=== PATIENT | female | born 2000 | race Asian ===

== ENCOUNTER 2023-06-20 10:42 | Emergency (ER) | payer OTHER, SELFPAY ==
[2023-06-20] VITALS (10 sets, daily range): BP systolic 107–130; BP diastolic 67–87; PULSE 111–140; RESP 20; TEMP 37.7–39.3; O2SAT 96–98; BMI 26.5
--- NOTE | 2023-06-20 10:55 | ED_ITS ---
HPI - Fever General Time Seen by Provider: 10:55 Date Seen: 06/20/23 Chief Complaint: Fever Stated Complaint: 104.1 fever Time Seen by Provider: 06/20/23 10:53 Source: patient and RN notes reviewed Mode of arrival: ambulatory Limitations: no limitations History of Present Illness HPI Narrative: This 23-year-old female whom is a [employer] student is coming in with fever and cough. She started with a sore throat on Wednesday, nasal congestion has started today. She has had a dry cough, sometimes she will get some sputum production. She does feel short of breath with it at times. She has been taking Tylenol and ibuprofen and is still running fevers despite which she states is maximal use of these medicines. She last took a 1000 mg of Tylenol and 200 mg of ibuprofen around 9:00 a.m. this morning. She denies any history of asthma, no chance for . 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 She has had a history of pneumonia per report. Denies any nausea vomiting or diarrhea. MD elicited complaint: fever Related Data Home Medications Medication Instructions Recorded Confirmed albuterol sulfate 90 mcg/actuation g inhalation 01/26/22 01/26/22 aerosol inhaler Previous Rx's Medication Instructions Recorded fluticasone propionate 110 1 puff inhalation BID #12 grams 01/26/22 mcg/actuation HFA aerosol inhaler (Flovent HFA) prednisone 20 mg tablet 20 mg PO BID #10 tabs 01/26/22 Allergies Allergy/AdvReac Type Severity Reaction Status Date / Time No Known Drug Allergies Allergy Verified 01/26/22 17:44 Review of Systems Status of ROS Reports: 6 or more systems reviewed and unremarkable except as noted in History and below [facility] Medical History Wheeze ?R06.2 - Wheezing (ICD-10) Social History Smoking Status: Never smoker How often do you have a drink containing alcohol: never How often do you have six or more drinks on one occasion: Never AUDIT-C Alcohol total score: 0 Non-prescribed substance use: denies use Exam Const Vital Signs, click to edit/add: Vital Signs - 24 hr 06/20/23 10:46 06/20/23 11:05 06/20/23 11:05 Temperature 102.7 F H 102.7 F H Pulse Rate Pulse Rate [Pulse Oximeter] 140 H 140 H Respiratory Rate 20 20 Blood Pressure Blood Pressure [Right Upper Arm] 130/87 Pulse Oximetry 98 98 98 Oxygen Delivery Method Room Air Room Air 06/20/23 11:13 06/20/23 11:20 06/20/23 11:30 Temperature 102.7 F H Pulse Rate 120 H 111 H Pulse Rate [Pulse Oximeter] Respiratory Rate Blood Pressure Blood Pressure [Right Upper Arm] Pulse Oximetry 97 96 Oxygen Delivery Method 06/20/23 11:32 06/20/23 11:45 Temperature Pulse Rate 113 H 113 H Pulse Rate [Pulse Oximeter] Respiratory Rate Blood Pressure 107/67 Blood Pressure [Right Upper Arm] Pulse Oximetry 96 96 Oxygen Delivery Method This 23-year-old female is alert, interactive, no apparent distress. Cheeks are flushed but no facial rash, sclera clear, conjugate gaze. Left canal blocked by cerumen right TM is normal, no evidence of infection. Oropharynx with normal mucosa, no exudates or erythema, no tonsillar enlargement. Neck is supple, no adenopathy or masses noted. Lungs are clear with good air entry, no wheezing or crackles but deep breathing does induce some dry coughing. Her speech is normal, no hoarseness. CV regular but fast, no murmur. Skin visualized without rash. Documenting provider has reviewed patient's vital signs: yes Course Course ED Course: Will give this patient a L of IV fluids to help with fever control and symptom relief. Will also dose her with 400 mg oral ibuprofen. We have discussed alternating Tylenol and ibuprofen. I will get a portable chest x-ray, nursing staff did collect the triple swab on arrival. We will get some basic labs with a CRP, basic metabolic panel, lactate and CBC. This likely represents a viral upper respiratory infection such is influenza. Need to consider bacterial pneumonia as well. Will have her on pulse oximetry here to ensure that her pulse oximetry is stable and she is not hypoxic, see if the fluids and ibuprofen help bring her pulse down. Reevaluation(s) Time of Reevaluation #1: 12:00 Reevaluation #1: Reviewed with patient she has influenza A. Review negative chest x-ray in her lab work. She is much less flushed, temperature is now 99.9 orally. We did discuss Tamiflu and she certainly is out of the 48 hour window. She awoke with symptoms Clyde morning. Thus, would not advocate Tamiflu for her, she is certainly out of the guidelines for taking this. Vital Signs Vital signs: Initial Vital Signs Temperature 102.7 F H 06/20/23 10:46 Temperature Source Oral 06/20/23 10:46 Pulse Rate 140 H 06/20/23 10:46 Respiratory Rate 20 06/20/23 10:46 Blood Pressure 130/87 06/20/23 10:46 Blood Pressure Mean 101 06/20/23 10:46 Blood Pressure Position Sitting 06/20/23 10:46 Pulse Oximetry 98 06/20/23 10:46 Oxygen Delivery Method Room Air 06/20/23 10:46 Vital Signs Temperature 102.7 F H 06/20/23 10:46 Pulse Rate 140 H 06/20/23 10:46 Respiratory Rate 20 06/20/23 10:46 Blood Pressure 130/87 06/20/23 10:46 Pulse Oximetry 98 06/20/23 10:46 Oxygen Delivery Method Room Air 06/20/23 10:46 Temperature 102.7 F H 06/20/23 11:13 Pulse Rate 113 H 06/20/23 11:45 Respiratory Rate 20 06/20/23 11:05 Blood Pressure 107/67 06/20/23 11:32 Pulse Oximetry 96 06/20/23 11:45 Oxygen Delivery Method Room Air 06/20/23 11:05 Medications Administered Medications: Generic Name Dose Route Start Last Admin Trade Name Freq PRN Reason Stop Dose Admin Sodium Chloride 1,000 mls @ 1,000 mls/hr 06/20/23 11:07 06/20/23 11:13 0.9 % Sodium Chloride 1000 Ml IV 06/20/23 12:06 1,000 mls/hr .Q1H LORETA Administration Discontinued Medications Generic Name Dose Route Start Last Admin Trade Name Freq PRN Reason Stop Dose Admin Ibuprofen 400 mg 06/20/23 11:10 06/20/23 11:13 Ibuprofen 200 Mg Tablet PO 06/20/23 11:11 400 mg ONCE ONE Administration MDM - Fever Lab Data Attestation: I reviewed the patient's lab results. Labs: Lab Results 06/20/23 06/20/23 Range/Units 11:00 Unknown WBC 10.36 (4.50-11.00) K/uL RBC 4.69 (4.00-5.20) m/uL Hgb 14.3 (12.0-16.0) gm/dL Hct 42.4 (33.0-51.0) % MCV 90 (80-100) fL MCH 31 (26-34) pg MCHC 34 (32-36) gm/dL RDW Coeff of Marleny 12.0 (11.5-15.5) % Plt Count 239 (140-440) K/uL Neut % (Auto) 76.1 H (42.0-72.0) % Lymph % (Auto) 13.3 L (20-44) % Scott % (Auto) 9.8 (0.0-11.0) % Eos % (Auto) 0.3 (0.0-7.0) % Baso % (Auto) 0.3 (0.0-3.0) % Neut # (Auto) 7.90 H (1.7-7.0) K/uL Lymph # (Auto) 1.40 (0.90-2.90) K/uL Scott # (Auto) 1.00 H (0.00-0.90) K/UL Eos # (Auto) 0.03 (0.00-0.50) K/uL Baso # (Auto) 0.03 (0.00-0.30) K/uL Abs Immat Gran (auto) 0.02 (0.00-0.30) K/uL Imm/Tot Granulo (auto) 0.2 % Sodium 136 (135-149) mmol/L Potassium 3.8 (3.6-5.1) mmol/L Chloride 102 (96-114) mmol/L Carbon Dioxide 20 (20-32) mmol/L Anion Gap 14 (7-15) mEq/L BUN 8 (5-24) mg/dL Creatinine 0.5 (0.5-1.5) mg/dL Estimated Creat Clear 140.77 Estimated GFR 137 ml/min Glucose 114 (60-115) mg/dL Lactate 2.0 H (0.5-1.9) mmol/L Calcium 9.9 (8.4-10.6) mg/dL C-Reactive Protein 3.6 H (0.5-1.0) mg/dL SARS-CoV-2 (PCR) Negative SARS-CoV-2 (Negative) Influenza Type A (PCR) POSITIVE PCR FLU A A (Negative) Influenza Type B (PCR) Negative PCR FLU B (Negative) RSV (PCR) Negative PCR RSV (Negative) Group A Strep DNA NOT DETECTED (Not Detectd) Imaging Data Chest x-ray: Attestation: I have reviewed the pertinent imaging results. My impression: I do not appreciate any acute pathology on my preliminary review. Radiologist's impression: Patient: ANNITA HARRIS Facility:?[facility] Patient ID:?[id number] Site Patient ID:?[id number]. Site :?[id number] Study:?XRay Chest portable-06/20/2023 11:20:16 AM Ordering Physician:?Shaquille Cole Final Report: Indication: Cough, fever Technique: AP portable chest one view Comparison: 01/26/2022 Findings: Lungs clear. No focal or diffuse opacities. No effusion. No pneumothorax. Normal cardiomediastinal silhouette. Osseous structures are normal. Impression: Lungs clear. No acute findings. Dictated by Shanika Nagy MD @ 06/20/2023 11:34:37 AM (Electronic Signature) Discharge Plan Discharge Clinical Impression: Influenza A Patient Disposition: Home, Self-Care Condition: Stable Instructions: Influenza (ED) Additional Instructions: It is important to push fluids, need to stay hydrated. Tylenol 1000 mg 3 times a day baseline for fever control. Can supplement with ibuprofen, 600 mg orally every 6 hours for fever, recommend taking ibuprofen with food. You are likely going to be sick for 7-10 days. You need to quarantine until you are fever free for 24 hours off all of Tylenol and ibuprofen. Can use cough and cold medicines as needed for symptom control, make sure that they do new not contain extra Tylenol or ibuprofen. If you are not improving over the next week, feel you are worsening at any point or have concerns, do recommend re-evaluation. Activity Level: Activity as Tolerated Discharge Diet: Regular Prescriptions: No Action albuterol sulfate 90 mcg/actuation HFA aerosol inhaler inhalation Hold Instructions: Doctor's Order prednisone 20 mg tablet 20 mg PO BID Qty: 10 0RF Hold Instructions: Doctor's Order fluticasone propionate [Flovent HFA] 110 mcg/actuation HFA aerosol inhaler 1 puff inhalation BID Qty: 12 0RF Hold Instructions: Doctor's Order Follow Up/Referrals: Provider,Not a Local [Primary Care Provider] - Stand Alone Forms: [employer] Info Instructions
--- NOTE | 2023-06-20 11:06 | XR_ITS ---
Patient: ANNITA HARRIS Facility:?[facility] Patient ID:?[id number] Site Patient ID:?[id number]. Site :?2002 Study:?XRay-Chest portable-06/20/2023 11:20:16 AM Ordering Physician:Josiane Cole Final Report: Indication: Cough, fever Technique: AP portable chest one view Comparison: 01/26/2022 Findings: Lungs clear. No focal or diffuse opacities. No effusion. No pneumothorax. Normal cardiomediastinal silhouette. Osseous structures are normal. Impression: Lungs clear. No acute findings. Dictated by Shanika Nagy MD @ 06/20/2023 11:34:37 AM Signed by:?Shanika Nagy MD @06/20/2023 11:34:37 AM (Electronic Signature)
[2023-06-20] MEDS: IBUPROFEN 200 MG TABLET 400 MG PO (11:13)
[2023-06-20] MEDS: 0.9 % SODIUM CHLORIDE 1000 ml 1,000 ML IV (11:13)
[2023-06-20 11:18] LABS: Basophils Absolute Auto 0.03 K/uL (0.00-0.30); Basophils Percent Auto 0.3 % (0.0-3.0); Eosinophils Absolute Auto 0.03 K/uL (0.00-0.50); Eosinophils Percent Auto 0.3 % (0.0-7.0); Hematocrit 42.4 % (33.0-51.0); Hemoglobin* 14.3 gm/dL (12.0-16.0); Immature Granulocytes Abs Auto 0.02 K/uL (0.00-0.30); Immature Granulocytes Pct Auto 0.2 %; Lymphocytes Percent Auto 13.3 % (20-44); Mean Corpuscular HGB Conc 34 gm/dL (32-36); Mean Corpuscular Hemoglobin 31 pg (26-34); Mean Corpuscular Volume 90 fL (80-100); Monocytes Percent Auto 9.8 % (0.0-11.0); Neutrophils Percent Auto 76.1 % (42.0-72.0); Platelet Count* 239 K/uL (140-440); Red Blood Count 4.69 m/uL (4.00-5.20); White Blood Count* 10.36 K/uL (4.50-11.00)
[2023-06-20 11:19] LABS: Slide Review Reflex No
[2023-06-20 11:29] LABS: Strep A DNA Probe* NOT DETECTED (Not Detectd)
[2023-06-20 11:31] LABS: Chloride* 102 mmol/L (96-114); Potassium* 3.8 mmol/L (3.6-5.1); Sodium* 136 mmol/L (135-149)
[2023-06-20 11:34] LABS: Anion Gap 14 mEq/L (7-15); Blood Urea Nitrogen* 8 mg/dL (5-24); Carbon Dioxide* 20 mmol/L (20-32); Creatinine* 0.5 mg/dL (0.5-1.5); Est. Creatinine Clearance* 140.77; Estimated Glomerular Filt Rate 137 ml/min; Glucose* 114 mg/dL (60-115)
[2023-06-20 11:35] LABS: Calcium* 9.9 mg/dL (8.4-10.6)
[2023-06-20 11:37] LABS: C Reactive Protein* 3.6 mg/dL (0.5-1.0)
[2023-06-20 11:42] LABS: PCR FLU A POSITIVE PCR FLU A (Negative); PCR FLU B Negative PCR FLU B (Negative); PCR RSV Negative PCR RSV (Negative); SARS PCR* Negative SARS-CoV-2 (Negative)
== END 2023-06-20 12:16 | disposition home or self-care (01) ==
PROVIDERS: Emergency Provider Family Medicine
DX: J09.X2 Influenza due to identified novel influenza A virus with other respiratory manifestations (principal)
CPT/HCPCS: 36415; 71045; 80048; 83605; 85025; 86140; 87631; 87651; 94761; 99283; 99284; A9270; J7030